=== PATIENT | female | born 1980 | race Hispanic/Latino ===

== ENCOUNTER 2018-07-21 07:39 | Day surgery (SDC) | payer OTHER ==
[2018-07-19 13:03] VITALS: BP 149/72
[2018-07-19 13:16] LABS: BASOPHILS % (AUTO) 0.9 % (0.0-5.0); EOSINOPHILS % (AUTO) 0.7 % (0.0-8.0); HEMATOCRIT 30.4 % (36-48); LYMPHOCYTES % (AUTO) 16.1 % (21.0-51.0); MEAN CORPUSCULAR HEMOGLOBIN 22.8 pg (27.0-33.0); MEAN CORPUSCULAR HGB CONC 31.7 g/dL (32.0-36.0); MEAN CORPUSCULAR VOLUME 71.7 fL (79-99); MONOCYTES % (AUTO) 7.7 % (3.0-13.0); NEUTROPHILS % (AUTO) 74.6 % (40.0-77.0); PLATELET COUNT (AUTO) 367 K/uL (130-400); RED BLOOD CELL COUNT(AUTO) 4.23 MIL/uL (4.00-5.50); RED CELL DISTRIBUTION WIDTH 17.4 % (11.0-15.5); WHITE BLOOD COUNT (AUTO) 8.2 K/uL (4.8-10.8)
[2018-07-19 13:23] LABS: CREATININE 0.7 mg/dL (0.5-1.5)
--- NOTE | 2018-07-20 15:59 | NUR ---
ABNORMAL LABS HGB 9.6, HCT 30.[address] FLOWERS, NO FURTHER ORDERS, MAY PROCEED WITH PLANNED PROCEDURE.
[2018-07-21] VITALS (21 sets, daily range): BP systolic 126–154; BP diastolic 64–97
[~2018-07-21] VITALS: Ht 170.2 cm; Wt 113.4 kg
[~2018-07-21 07:39] MED LIST: FERR325T22 PO; FLUO20CA30 PO
[2018-07-21] MEDS ORDERED: LACTATED RINGERS 1000ML 1,000 ML IV ONE (09:43)
[2018-07-21] MEDS: CEFAZOLIN SODIUM 1 GM VIAL ONE ×2 (10:04→11:07)
[2018-07-21] MEDS ORDERED: ONDANSETRON HCL MDV 20ML 2 MG/ML VIAL ONE (10:44)
[2018-07-21] MEDS ORDERED: MIDAZOLAM HCL 1 MG/ML 2ML VIAL ONE (10:45)
[2018-07-21] MEDS ORDERED: FENTANYL CITRATE PF 50 MCG/1 ML 2ML VIAL ONE ×3 (10:45→12:40)
[2018-07-21] MEDS ORDERED: ROCURONIUM 10MG/1ML SYR 10 MG/ML ML ONE ×2 (10:54→11:42)
[2018-07-21] MEDS ORDERED: EPHEDRINE SULFATE 50 MG/ML AMPULE ONE (11:19)
--- NOTE | 2018-07-21 14:10 | NUR ---
CALLED DR. FLOWERS'S OFFICE TO VERIFY APPROPRIATE DRESSING CHANGE MEASURES WHILE AT HOME. SPOKE TO URB[employer]STER. INSTRUCTIONS GIVEN TO LEAVE DRESSING ON AND TO KEEP IT DRY, CLEAN AND INTACT UNTIL SEE AT 2 WEEK FOLLOW-UP. INSTRUCTIONS PASSED ALONG TO PT. PT ALSO INSTRUCTED TO KEEP LEFT ANKLE ELEVATED.
--- NOTE | 2018-07-21 14:55 | NUR ---
PT DISCHARGED HOME, TOLERATING FLUIDS WELL, TRANSFERRING WELL WHILE MAINTAIN NON-WEIGHT BARING TO LEFT ANKLE. PT DENIES ANY SEVERE PAIN, NAUSEA, OR DIZZINESS. LEFT ANKLE DRESSING REMAINS DRY, CLEAN, AND INTACT WITH SIGNS OF GOOD PERIPHERAL CIRCULATION TO TOES. NO BLEEDING OR DRAINAGE NOTED. PT REPORTS HAVING ADEQUATE KNOWLEDGE OF CRUTCH USE. SIGNS TO BEAWARE OF SURGICAL SITE INFECTIONS DISCUSSED WITH PT. PT AND MOTHER REPORT NO FURTHER QUESTIONS AT THIS TIME. PRESCRIPTIONS GIVEN TO MOTHER.
== END 2018-07-21 14:55 | disposition home or self-care (01) ==
LOC: DAH 07:39
PROVIDERS: ATTEND Orthopaedic Surgery
DX: S82.62XA Displaced fracture of lateral malleolus of left fibula, initial encounter for closed fracture (principal); X58.XXXA Exposure to other specified factors, initial encounter; Y93.9 Activity, unspecified; Y92.89 Other specified places as the place of occurrence of the external cause; Y99.9 Unspecified external cause status; Z79.01 Long term (current) use of anticoagulants
CPT/HCPCS: 27792; 36415; 73610; 80048; 84703; 85025; A4218; A4248; A4450; A4649 ×3; A4930; A6223; C1713 ×6; C1776; G0168; J0690; J2250; J3010 ×3; J3490; J7120 ×2